=== PATIENT | female | born 1955 | race Caucasian/White ===

== ENCOUNTER 2016-09-03 20:11 | Emergency (ER) | payer MEDICAID, OTHER, SELFPAY ==
[2016-09-03 20:23] VITALS: BP 130/95
[2016-09-03] MEDS ORDERED: Albuterol/Ipratropium 3.0-0.5 MG/3 ML Neb Soln NEB ONE ×2 (20:50→22:12)
[2016-09-03] MEDS ORDERED: methylPREDNISolone Sodium Succinate 125 MG/2 ML SDV ONE (20:55)
[2016-09-03] MEDS ORDERED: Sodium Chloride 0.9% 1,000 ML IV SCH (21:00)
[2016-09-03] MEDS: methylPREDNISolone Sod Succ 125 MG in Dextrose 5% in Water 100 ML IV ONE ×4 (21:12→21:24)
[2016-09-03] MEDS ORDERED: Albuterol 0.083% 2.5 MG/3 ML Neb Soln NEB ONE (21:36)
--- NOTE | 2016-09-03 22:48 | EDM.PDOC ---
ED HPI GENERAL MEDICAL PROBLEM - General Chief Complaint: Respiratory Problem Stated Complaint: COUGH/TROUBLE BREATHING Time Seen by Provider: 09/03/16 20:18 Source of Information: Reports: Patient History Limitations: Reports: No limitations - History of Present Illness INITIAL COMMENTS - FREE TEXT/NARRATIVE: History of present illness: [61-year-old female presents with a cough for 3 days it is nonproductive and asthmatic in nature and a sore throat. She's not had any fever or or chills. She'll occasionally feel short of breath with this. Her recently had a similar illness that lasted 2 weeks.] Review of systems: As per history of present illness and below otherwise all systems reviewed and negative. Past medical history: As per history of present illness and as reviewed below otherwise noncontributory. Surgical history: As per history of present illness and as reviewed below otherwise noncontributory. Social history: No reported history of drug or alcohol abuse. Family history: As per history of present illness and as reviewed below otherwise noncontributory. Physical exam: HEENT: Atraumatic, normocephalic, pupils reactive, negative for conjunctival pallor or scleral icterus, mucous membranes moist, throat clear, neck supple, nontender, trachea midline. Lungs: She has diffuse rhonchi and wheezing throughout with fair to good air exchange Heart: S1S2, regular, negative for clicks, rubs, or JVD. Abdomen: Soft, nondistended, nontender. Negative for masses or hepatosplenomegaly. Negative for costovertebral tenderness. Pelvis: Stable nontender. Genitourinary: Deferred. Rectal: Deferred. Extremities: Atraumatic, negative for cords or calf pain. Neurovascular unremarkable. Neuro: Awake, alert, oriented. Cranial nerves II through XII unremarkable. Cerebellum unremarkable. Motor and sensory unremarkable throughout. Exam nonfocal. Diagnostics: [CBC complete metabolic panel chest x-ray rapid strep and influenza AMB were obtained. Strep was positive chest x-ray appeared clear] Therapeutics: [She received IV fluids while here and several med nebs. She is on inhalers at home. She also received Solu-Medrol 125 mg IV] Impression: [Strep pharyngitis Cough] Plan: [Of the treated with Augmentin 875 twice a day for 10 days. Followup with the clinic if not gradually improving] Definitive disposition and diagnosis as appropriate pending reevaluation and review of above. - Related Data Allergies Allergy/AdvReac Type Severity Reaction Status Date / Time fluoxetine [From Prozac] Allergy Cannot Verified 09/03/16 20:52 Remember hydrochlorothiazide Allergy Cannot Verified 09/03/16 20:52 [From Maxzide] Remember indapamide [From Lozol] Allergy Cannot Verified 09/03/16 20:52 Remember lisinopril [From Zestril] Allergy Cough Verified 09/03/16 20:52 nortriptyline Allergy Cannot Verified 09/03/16 20:52 Remember triamterene [From Maxzide] Allergy Cannot Verified 09/03/16 20:52 Remember Home Meds: Home Meds DULoxetine [Cymbalta] 90 mg PO DAILY 10/15/13 [History] Levothyroxine Sodium [Levothyroxine Sodium] 50 mcg PO DAILY 10/15/13 [History] Metoprolol Tartrate 50 mg PO BEDTIME 10/15/13 [History] atorvaSTATin Calcium [Atorvastatin Calcium] 40 mg PO BEDTIME 10/15/13 [History] traZODone HCl [Trazodone HCl] 150 mg PO BEDTIME 10/15/13 [History] Aspirin [Ecotrin] 81 mg PO DAILY 01/07/14 [History] Albuterol Sulfate [Proair Hfa] 2 inh PO Q4H PRN 05/03/14 [History] Gemfibrozil [Lopid] 600 mg PO BID 05/03/14 [History] Ipratropium/Albuterol Sulfate [Combivent Respimat Inhal [place]] 1 puff PO QID 10/10 [History] Losartan [Cozaar] 50 mg PO DAILY 05/03/14 [History] Multivitamin [Multi Vitamin Daily] 1 tab PO DAILY 05/03/14 [History] Calcitriol [Rocaltrol] 0.25 mcg PO DAILY 09/03/16 [History] amLODIPine [Norvasc] 5 mg PO DAILY 09/03/16 [History] hydrOXYzine Pamoate [Hydroxyzine Pamoate] 1 - 2 tab PO TID PRN 09/03/16 [History ] Past Medical History HEENT History: Reports: Impaired vision Cardiovascular History: Reports: High cholesterol, Hypertension Respiratory History: Reports: Asthma Gastrointestinal History: Reports: Cholelithiasis Genitourinary History: Reports: Chronic renal insuffiency [employer]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: Musculoskeletal History: Reports: Arthritis Psychiatric History: Reports: Anxiety, Depression Endocrine/Metabolic History: Reports: Hypothyroidism - Infectious Disease History Infectious Disease History: Reports: Chicken pox - Past Surgical History GI Surgical History: Reports: Cholecystectomy Female Surgical History: Reports: Hysterectomy, Salpingo-oophorectomy Social & Family History - Tobacco Use Smoking Status *Q: Current Status Unknown Second Hand Smoke Exposure: No - Caffeine Use Caffeine Use: Reports: Coffee - Alcohol Use Days Per Week of Alcohol Use: 0 - Recreational Drug Use Recreational Drug Use: No ED ROS GENERAL - Review of Systems Review Of Systems: ROS reveals no pertinent complaints other than HPI. ED EXAM, GENERAL - Physical Exam Exam: See Below Course - Vital Signs Last Recorded V/S: Last Vital Signs Temp 36.9 C 09/03/16 20:34 Pulse 96 09/03/16 20:34 Resp 18 09/03/16 20:34 BP 130/95 H 09/03/16 20:34 Pulse Ox 93 L 09/03/16 20:34 - Orders/Labs/Meds Orders: Active Orders 24 hr Category Date Time Status RT Aerosol Therapy [RC] ASDIRECTED Care 09/03/16 20:50 Active RT Aerosol Therapy [RC] ASDIRECTED Care 09/03/16 21:36 Active RT Aerosol Therapy [RC] ASDIRECTED Care 09/03/16 22:12 Active Chest 2V [CR] Stat Exams 09/03/16 20:46 Taken CULTURE RESPIRATORY + SMEAR [RM] Stat Lab 09/03/16 20:48 Uncollected Sodium Chloride 0.9% [Normal Saline] 1,000 ml Med 09/03/16 21:00 Active IV ASDIRECTED Medication Orders Sodium Chloride (Normal Saline) 1,000 mls @ 500 mls/hr IV ASDIRECTED HIGINIO Last Admin: 09/03/16 21:18 Dose: 500 mls/hr Labs: Laboratory Tests 09/03/16 09/03/16 09/03/16 Range/Units 20:57 20:57 20:58 WBC 5.4 (4.5-11.0) K/uL RBC 4.23 (3.30-5.50) M/uL Hgb 11.8 L (12.0-15.0) g/dL Hct 34.2 L (36.0-48.0) % MCV 81 (80-98) fL MCH 28 (27-31) pg MCHC 35 (32-36) % Plt Count 268 (150-400) K/uL Neut % (Auto) 44 (36-66) % Lymph % (Auto) 40 (24-44) % [place] % (Auto) 11 H (2-6) % Eos % (Auto) 4 (2-4) % Baso % (Auto) 1 (0-1) % Sodium 138 L (140-148) mmol/L Potassium 3.6 (3.6-5.2) mmol/L Chloride 102 (100-108) mmol/L Carbon Dioxide 21 (21-32) mmol/L Anion Gap 18.6 H (5.0-14.0) mmol/L BUN 38 H D (7-18) mg/dL Creatinine 2.4 H (0.6-1.0) mg/dL Est Cr Clr Drug Dosing 18.34 mL/min Estimated GFR (MDRD) 20 L (>60) Glucose 90 (74-106) mg/dL Calcium 8.5 (8.5-10.1) mg/dL Total Bilirubin 0.4 (0.2-1.0) mg/dL AST 44 H (15-37) U/L ALT 24 (12-78) U/L Alkaline Phosphatase 79 (46-116) U/L Total Protein 7.3 (6.4-8.2) g/dL Albumin 3.5 (3.4-5.0) g/dL Globulin 3.8 H (2.3-3.5) g/dL Albumin/Globulin Ratio 0.9 L (1.2-2.2) Urine Color Yellow Urine Appearance Clear Urine pH 6.0 (4.5-8.0) Ur Specific [place] 1.010 (1.008-1.030) Urine Protein 100 H (NEGATIVE) mg/dL Urine Glucose (UA) Normal (NEGATIVE) mg/dL Urine Ketones Negative (NEGATIVE) mg/dL Urine Occult Blood Negative (NEGATIVE) Urine Nitrite Negative (NEGATIVE) Urine Bilirubin Negative (NEGATIVE) Urine Urobilinogen Normal (NORMAL) mg/dL Ur Leukocyte Esterase Negative (NEGATIVE) Urine RBC 0-5 (0-5) Urine WBC 0-5 (0-5) Ur Epithelial Cells Rare Amorphous Sediment Not seen Urine Bacteria Not seen Urine Mucus Not seen Meds: Medications Generic Name Dose Route Start Last Admin Trade Name Freq PRN Reason Stop Dose Admin Sodium Chloride 1,000 mls @ 500 mls/hr 09/03/16 21:00 09/03/16 21:18 Normal Saline IV 500 mls/hr ASDIRECTED HIGINIO Administration Discontinued Medications Generic Name Dose Route Start Last Admin Trade Name Freq PRN Reason Stop Dose Admin Albuterol 2.5 mg 09/03/16 21:36 09/03/16 21:42 Proventil Neb Soln NEB 09/03/16 21:37 2.5 mg ONETIME ONE Administration Albuterol/Ipratropium 3 ml 09/03/16 20:50 09/03/16 21:11 Duoneb 3.0-0.5 Mg/3 Ml NEB 09/03/16 20:51 3 ml ONETIME ONE Administration Albuterol/Ipratropium 3 ml 09/03/16 22:12 09/03/16 22:16 Duoneb 3.0-0.5 Mg/3 Ml NEB 09/03/16 22:13 3 ml ONETIME ONE Administration Methylprednisolone Sodium 102 mls @ 200 mls/hr 09/03/16 20:52 09/03/16 21:24 Succinate 125 mg/ Dextrose/ IV 09/03/16 21:23 200 mls/hr Water ONETIME ONE Administration Methylprednisolone Sodium Succinate Confirm 09/03/16 20:55 09/03/16 21:24 Solu-Medrol Administered 09/03/16 20:56 Not Given Dose 125 mg .ROUTE .STK-MED ONE Departure - Departure Time of Disposition: 22:46 Disposition: Home, Self-Care 01 Condition: good Clinical Impression: Strep pharyngitis, Exacerbation of asthma - Discharge Information Forms: ED Department Discharge Additional Instructions: Please followup in the clinic if do not gradually improving over the next 3-4 days - My Orders Last 24 Hours: My Active Orders 09/03/16 20:46 Chest 2V [CR] Stat 09/03/16 20:48 CULTURE RESPIRATORY + SMEAR [RM] Stat 09/03/16 20:50 RT Aerosol Therapy [RC] ASDIRECTED 09/03/16 21:00 Sodium Chloride 0.9% [Normal Saline] 1,000 ml IV ASDIRECTED 09/03/16 21:36 RT Aerosol Therapy [RC] ASDIRECTED 09/03/16 22:12 RT Aerosol Therapy [RC] ASDIRECTED - Assessment/Plan Last 24 Hours: My Active Orders 09/03/16 20:46 Chest 2V [CR] Stat 09/03/16 20:48 CULTURE RESPIRATORY + SMEAR [RM] Stat 09/03/16 20:50 RT Aerosol Therapy [RC] ASDIRECTED 09/03/16 21:00 Sodium Chloride 0.9% [Normal Saline] 1,000 ml IV ASDIRECTED 09/03/16 21:36 RT Aerosol Therapy [RC] ASDIRECTED 09/03/16 22:12 RT Aerosol Therapy [RC] ASDIRECTED
--- NOTE | 2016-09-04 09:18 | CR ---
Two-view chest Comparison: December 2013. The heart and vascular structures are within normal limits. There are no infiltrates or effusions. T here is mild platelike atelectasis seen anteriorly on the lateral view. There is a stable calcified granuloma the right lower lobe. Impression: 1. No acute findings.
== END 2016-09-03 23:09 | disposition home or self-care (01) ==
LOC: JP.ED 20:11
DX: J45.901 Unspecified asthma with (acute) exacerbation (principal); J02.9 Acute pharyngitis, unspecified; I12.9 Hypertensive chronic kidney disease with stage 1 through stage 4 chronic kidney disease, or unspecified chronic kidney disease; N18.9 Chronic kidney disease, unspecified; F41.9 Anxiety disorder, unspecified; F32.9 Major depressive disorder, single episode, unspecified; E03.9 Hypothyroidism, unspecified; Z90.49 Acquired absence of other specified parts of digestive tract; Z90.710 Acquired absence of both cervix and uterus; Z90.721 Acquired absence of ovaries, unilateral; Z79.82 Long term (current) use of aspirin; Z79.899 Other long term (current) drug therapy; Z88.8 Allergy status to other drugs, medicaments and biological substances
CPT/HCPCS: 36415; 71020; 80053; 81001; 85025; 87430; 87804; 96361; 96365; 99285; J2930; J7040; J7620; J7060

== ENCOUNTER 2018-10-23 11:06 | Observation (INO) | payer MEDICAID ==
[2018-10-23] MEDS ORDERED: Sodium Chloride 0.9% 10 ML Syringe FLUSH PRN ×2 (11:44→15:15)
[2018-10-23] MEDS ORDERED: Sodium Chloride 0.9% 1,000 ML IV SCH (11:45)
[2018-10-23] MEDS ORDERED: Meclizine 25 MG Tab PO ONE (11:45)
[2018-10-23] MEDS ORDERED: Loratadine 10 MG Tab PO ONE (11:45)
--- NOTE | 2018-10-23 11:51 | EDM.PDOC ---
ED HPI GENERAL MEDICAL PROBLEM - General Chief Complaint: General Stated Complaint: DIZZY, DIARREA Time Seen by Provider: 10/23/18 11:40 Source of Information: Reports: Patient History Limitations: Reports: No Limitations - History of Present Illness INITIAL COMMENTS - FREE TEXT/NARRATIVE: Sabi is a 63 year old female, presents to the ED today with c/o of a 2 week history of a room spinning sensation, patient states she was seen at the clinic last week and started on medication for vertigo which patient reports has not helped. Patient also endorses non bloody diarrhea that stated shortly after her vertigo did. Patient denies any nausea, vomiting, fever, joint pain, rashes or headache. Patient denies any visual changes. She is able to ambulate slowly secondary to the room spinning. Patient reports that holding very still improves her symptoms. Onset: Sudden - Related Data Allergies Allergy/AdvReac Type Severity Reaction Status Date / Time fluoxetine [From Prozac] Allergy Cannot Verified 10/23/18 11:27 Remember hydrochlorothiazide Allergy Cannot Verified 10/23/18 11:27 [From Maxzide] Remember indapamide [From Lozol] Allergy Cannot Verified 10/23/18 11:27 Remember lisinopril [From Zestril] Allergy Cough Verified 10/23/18 11:27 nortriptyline Allergy Cannot Verified 10/23/18 11:27 Remember triamterene [From Maxzide] Allergy Cannot Verified 10/23/18 11:27 Remember Home Meds: Home Meds DULoxetine [Cymbalta] 90 mg PO DAILY 10/15/13 [History] Levothyroxine Sodium 50 mcg PO DAILY 10/15/13 [History] Metoprolol Tartrate 50 mg PO BEDTIME 10/15/13 [History] atorvaSTATin Calcium [Atorvastatin Calcium] 40 mg PO BEDTIME 10/15/13 [History] traZODone HCl [Trazodone HCl] 150 mg PO BEDTIME 10/15/13 [History] Aspirin [Ecotrin] 81 mg PO DAILY 01/07/14 [History] Albuterol Sulfate [Proair Hfa] 2 inh PO Q4H PRN 05/03/14 [History] Gemfibrozil [Lopid] 600 mg PO BID 05/03/14 [History] Ipratropium/Albuterol Sulfate [Combivent Respimat Inhal [place]] 1 puff PO QID 10/10 [History] Losartan [Cozaar] 50 mg PO DAILY 05/03/14 [History] Multivitamin [Multi Vitamin Daily] 1 tab PO DAILY 05/03/14 [History] Calcitriol [Rocaltrol] 0.25 mcg PO DAILY 09/03/16 [History] amLODIPine [Norvasc] 5 mg PO DAILY 09/03/16 [History] hydrOXYzine pamoate [Hydroxyzine Pamoate] 1 - 2 tab PO TID PRN 09/03/16 [History ] Past Medical History HEENT History: Reports: Impaired Vision Cardiovascular History: Reports: High Cholesterol, Hypertension Respiratory History: Reports: Asthma Gastrointestinal History: Reports: Cholelithiasis Genitourinary History: Reports: Chronic Renal Insuffiency 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: Musculoskeletal History: Reports: Arthritis Psychiatric History: Reports: Anxiety, Depression Endocrine/Metabolic History: Reports: Hypothyroidism - Infectious Disease History Infectious Disease History: Reports: Chicken Pox - Past Surgical History Head Surgeries/Procedures: Reports: None HEENT Surgical History: Reports: None Cardiovascular Surgical History: Reports: None Respiratory Surgical History: Reports: None GI Surgical History: Reports: Cholecystectomy Female Surgical History: Reports: Hysterectomy, Salpingo-Oophorectomy Endocrine Surgical History: Reports: None Musculoskeletal Surgical History: Reports: None Social & Family History - Tobacco Use Smoking Status *Q: Never Smoker Second Hand Smoke Exposure: No - Caffeine Use Caffeine Use: Reports: None - Recreational Drug Use Recreational Drug Use: No ED ROS GENERAL - Review of Systems Review Of Systems: ROS reveals no pertinent complaints other than HPI. ED EXAM, GENERAL - Physical Exam Exam: See Below Exam Limited By: No Limitations General Appearance: Alert, WD/WN, No Apparent Distress Eye Exam: Bilateral Eye: EOMI, Normal Inspection, PERRL Ears: Normal External Exam, Normal Canal, Hearing Grossly Normal, Normal TMs Ear Exam: Bilateral Ear: TM normal Nose: Normal Inspection, Normal Mucosa Throat/Mouth: Normal Inspection, Normal Oropharynx, No Airway Compromise Head: Atraumatic Neck: Normal Inspection, Supple, Non-Tender, Full Range of Motion Respiratory/Chest: No Respiratory Distress, Lungs Clear, Normal Breath Sounds Cardiovascular: Normal Peripheral Pulses, Regular Rate, Rhythm, No Murmur GI/Abdominal: Normal Bowel Sounds, Soft, Non-Tender Extremities: Normal Inspection, Normal Range of Motion Neurological: Alert, Oriented, CN II-XII Intact Psychiatric: Normal Affect Skin Exam: Warm, Dry, Intact. No: Rash Course - Vital Signs Last Recorded V/S: Last Vital Signs Temp 36.1 C 10/23/18 13:22 Pulse 77 10/23/18 13:22 Resp 16 10/23/18 13:22 BP 103/57 L 10/23/18 13:22 Pulse Ox 98 10/23/18 13:22 Sabi is a 63 year old female, hx of HTN, high cholesterol, and thyroid disease , presents to the ED today with a 2 week hx of progressive room spinning sensation. Please refer to HPI and focused exam. Patient on arrival here is hemodynamically stable, she is afebrile, exam is reassuring with no neuro/focal deficits, no nystagmus. I feel the risk of this being central vertigo is low, although, given duration of symptoms that did not improve with medication, I am going to obtain a CT scan of head today as well as check CBC, CMP, and TSH level today. PIV established and patient was given IV fluid here today with oral meclizine and Claritin. CT scan of head was unremarkable, blood work today reveals acute on chronic kidney injury with creatinine of 3.4 with GFR of 14 and BUN of 60. Patient has Gap of 20.5 with carbon dioxide of 17. CBC returns with white count of 5.9 with HGB of 11.4 with left shift and low neutrophil count. TSH is low, Free T3/ T4 is pending. Patient feeling modestly better here with fluids, plan to admit for acute on chronic kidney injury and hydration, hopefully her vertigo type symptoms will improve. Discussed patient with Dr. Escudero, hospitalist, he has accepted patient, patient remains in stable condition, agreeable to plan of care. - Orders/Labs/Meds Orders: Active Orders 24 hr Category Date Time Status Peripheral IV Care [RC] . DIRECTED Care 10/23/18 11:44 Active Sodium Chloride 0.9% [Normal Saline] 1,000 ml Med 10/23/18 11:45 Active IV ASDIRECTED Sodium Chloride 0.9% [Saline Flush] Med 10/23/18 11:44 Active 10 ml FLUSH ASDIRECTED PRN Peripheral IV Insertion Adult [OM.PC] Routine Oth 10/23/18 11:44 Ordered Medication Orders Sodium Chloride (Normal Saline) 1,000 mls @ 999 mls/hr IV ASDIRECTED HIGINIO Last Admin: 10/23/18 12:38 Dose: 999 mls/hr Sodium Chloride (Saline Flush) 10 ml FLUSH ASDIRECTED PRN PRN Reason: Keep Vein Open Last Admin: 10/23/18 12:38 Dose: 10 ml Labs: Laboratory Tests 10/23/18 10/23/18 10/23/18 Range/Units 11:45 11:52 11:52 WBC 5.9 (4.5-11.0) K/uL RBC 4.37 (3.30-5.50) M/uL Hgb 11.4 L (12.0-15.0) g/dL Hct 34.6 L (36.0-48.0) % MCV 79 L (80-98) fL MCH 26 L (27-31) pg MCHC 33 (32-36) % Plt Count 161 (150-400) K/uL Neut % (Auto) 67 H (36-66) % Lymph % (Auto) 20 L (24-44) % [place] % (Auto) 10 H (2-6) % Eos % (Auto) 2 (2-4) % Baso % (Auto) 2 H (0-1) % Sodium 133 L (140-148) mmol/L Potassium 4.5 (3.6-5.2) mmol/L Chloride 100 (100-108) mmol/L Carbon Dioxide 17 L (21-32) mmol/L Anion Gap 20.5 H (5.0-14.0) mmol/L BUN 60 H D (7-18) mg/dL Creatinine 3.4 H (0.6-1.0) mg/dL Est Cr Clr Drug Dosing 12.01 mL/min Estimated GFR (MDRD) 14 L (>60) Glucose 124 H (74-106) mg/dL Calcium 8.1 L (8.5-10.1) mg/dL Total Bilirubin 0.5 (0.2-1.0) mg/dL AST 42 H (15-37) U/L ALT 23 (12-78) U/L Alkaline Phosphatase 115 (46-116) U/L Total Protein 6.3 L (6.4-8.2) g/dL Albumin 2.8 L (3.4-5.0) g/dL Globulin 3.5 (2.3-3.5) g/dL Albumin/Globulin Ratio 0.8 L (1.2-2.2) Free T4 (0.76-1.46) ng/dL Free T3 (2.18-3.98) pg/dL TSH, Ultra Sensitive 0.008 L (0.358-3.740) uIU/mL 10/23/18 Range/Units 12:25 WBC (4.5-11.0) K/uL RBC (3.30-5.50) M/uL Hgb (12.0-15.0) g/dL Hct (36.0-48.0) % MCV (80-98) fL MCH (27-31) pg MCHC (32-36) % Plt Count (150-400) K/uL Neut % (Auto) (36-66) % Lymph % (Auto) (24-44) % [place] % (Auto) (2-6) % Eos % (Auto) (2-4) % Baso % (Auto) (0-1) % Sodium (140-148) mmol/L Potassium (3.6-5.2) mmol/L Chloride (100-108) mmol/L Carbon Dioxide (21-32) mmol/L Anion Gap (5.0-14.0) mmol/L BUN (7-18) mg/dL Creatinine (0.6-1.0) mg/dL Est Cr Clr Drug Dosing mL/min Estimated GFR (MDRD) (>60) Glucose (74-106) mg/dL Calcium (8.5-10.1) mg/dL Total Bilirubin (0.2-1.0) mg/dL AST (15-37) U/L ALT (12-78) U/L Alkaline Phosphatase (46-116) U/L Total Protein (6.4-8.2) g/dL Albumin (3.4-5.0) g/dL Globulin (2.3-3.5) g/dL Albumin/Globulin Ratio (1.2-2.2) Free T4 1.06 (0.76-1.46) ng/dL Free T3 0.75 L (2.18-3.98) pg/dL TSH, Ultra Sensitive (0.358-3.740) uIU/mL Meds: Medications Generic Name Dose Route Start Last Admin Trade Name Freq PRN Reason Stop Dose Admin Sodium Chloride 1,000 mls @ 999 mls/hr 10/23/18 11:45 10/23/18 12:38 Normal Saline IV 999 mls/hr ASDIRECTED HIGINIO Administration Sodium Chloride 10 ml 10/23/18 11:44 10/23/18 12:38 Saline Flush FLUSH 10 ml ASDIRECTED PRN Administration Keep Vein Open Discontinued Medications Generic Name Dose Route Start Last Admin Trade Name Freq PRN Reason Stop Dose Admin Loratadine 10 mg 10/23/18 11:45 10/23/18 12:39 Claritin PO 10/23/18 11:46 10 mg ONETIME ONE Administration Meclizine HCl 25 mg 10/23/18 11:45 10/23/18 12:39 Antivert PO 10/23/18 11:46 25 mg ONETIME ONE Administration Departure - Departure Time of Disposition: 14:00 Disposition: Admitted As Inpatient 65 Condition: Good Clinical Impression: Vertigo [id number] kidney injury Qualifiers: Acute renal failure type: unspecified Chronic kidney disease stage: stage 4 ( severe) Qualified Code(s): N17.9 - Acute kidney failure, unspecified; N18.4 - Chronic kidney disease, stage 4 (severe) - Discharge Information Referrals: Kelly Boone CNM [Primary Care Provider] - Forms: ED Department Discharge - My Orders Last 24 Hours: My Active Orders 10/23/18 11:44 Peripheral IV Care [RC] . DIRECTED Sodium Chloride 0.9% [Saline Flush] 10 ml FLUSH ASDIRECTED PRN Peripheral IV Insertion Adult [OM.PC] Routine 10/23/18 11:45 Sodium Chloride 0.9% [Normal Saline] 1,000 ml IV ASDIRECTED - Assessment/Plan Last 24 Hours: My Active Orders 10/23/18 11:44 Peripheral IV Care [RC] . DIRECTED Sodium Chloride 0.9% [Saline Flush] 10 ml FLUSH ASDIRECTED PRN Peripheral IV Insertion Adult [OM.PC] Routine 10/23/18 11:45 Sodium Chloride 0.9% [Normal Saline] 1,000 ml IV ASDIRECTED
--- NOTE | 2018-10-23 12:39 | CRLCT ---
INDICATION: Progressive vertigo TECHNIQUE: CT head without contrast. COMPARISON: None. FINDINGS: CSF spaces: Within normal limits for age. Brain parenchyma and extra-axial spaces: The tong-white differentiation is normal. No sign of mass, hemorrhage, or midline shift. No extra-axial fluid collection. Skull base and calvarium: The visualized paranasal sinuses and mastoid air cells demonstrate no acute or significant findings. The visualized orbits are grossly unremarkable. No skull fractures. IMPRESSION: Unremarkable noncontrast head CT. Please note that all CT scans at this facility use dose modulation, iterative reconstruction, and/or weight-based dosing when appropriate to reduce radiation dose to as low as reasonably achievable. Dictated by Noe Shahid MD @ Oct 23 2018 12:36PM Signed by Dr. Noe Shahid @ Oct 23 2018 12:38PM
--- NOTE | 2018-10-23 14:40 | PCM.HP ---
H&P History of Present Illness - General Date of Service: 10/23/18 Admit Problem/Dx: Admission Diagnosis/Problem Admission Diagnosis/Problem Vertigo Source of Information: Patient, Provider, RN Notes Reviewed History Limitations: Reports: No Limitations - History of Present Illness Initial Comments - Free Text/Narative: Ms. Hammond is a 63-year-old woman who is admitted to observation status, for further management of vertigo with associated nausea, dehydration, and acute on chronic kidney injury. She reports episodes of vertigo in the past, although never this severe. She has had symptoms of vertigo over the past week and a half , occurring intermittently, worse over the last 3 days. She has become progressively more weak and came into the emergency department for further evaluation. By history vertigo is positional, becoming significantly worse following head movement and then slowly receding to a more mild level. Laboratory studies show evidence of acute on chronic kidney injury. At baseline she has chronic kidney disease stage IV, most recent GFR was 22. GFR today is found to be further decreased at 14 and there is evidence of lactic acidosis on laboratory tests. - Related Data Allergies/Adverse Reactions: Allergies Allergy/AdvReac Type Severity Reaction Status Date / Time fluoxetine [From Prozac] Allergy Cannot Verified 10/23/18 11:27 Remember hydrochlorothiazide Allergy Cannot Verified 10/23/18 11:27 [From Maxzide] Remember indapamide [From Lozol] Allergy Cannot Verified 10/23/18 11:27 Remember lisinopril [From Zestril] Allergy Cough Verified 10/23/18 11:27 nortriptyline Allergy Cannot Verified 10/23/18 11:27 Remember triamterene [From Maxzide] Allergy Cannot Verified 10/23/18 11:27 Remember Home Medications: Home Meds DULoxetine [Cymbalta] 90 mg PO DAILY 10/15/13 [History] Levothyroxine Sodium 50 mcg PO DAILY 10/15/13 [History] Metoprolol Tartrate 50 mg PO BEDTIME 10/15/13 [History] atorvaSTATin Calcium [Atorvastatin Calcium] 40 mg PO BEDTIME 10/15/13 [History] traZODone HCl [Trazodone HCl] 150 mg PO BEDTIME 10/15/13 [History] Aspirin [Ecotrin] 81 mg PO DAILY 01/07/14 [History] Albuterol Sulfate [Proair Hfa] 2 inh PO Q4H PRN 05/03/14 [History] Gemfibrozil [Lopid] 600 mg PO BID 05/03/14 [History] Ipratropium/Albuterol Sulfate [Combivent Respimat Inhal [place]] 1 puff PO QID 10/10 [History] Losartan [Cozaar] 50 mg PO DAILY 05/03/14 [History] Multivitamin [Multi Vitamin Daily] 1 tab PO DAILY 05/03/14 [History] Calcitriol [Rocaltrol] 0.25 mcg PO DAILY 09/03/16 [History] amLODIPine [Norvasc] 5 mg PO DAILY 09/03/16 [History] hydrOXYzine pamoate [Hydroxyzine Pamoate] 1 - 2 tab PO TID PRN 09/03/16 [History ] Past Medical History HEENT History: Reports: Impaired Vision Cardiovascular History: Reports: High Cholesterol, Hypertension Respiratory History: Reports: Asthma Gastrointestinal History: Reports: Cholelithiasis Genitourinary History: Reports: Chronic Renal Insuffiency 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: Musculoskeletal History: Reports: Arthritis Psychiatric History: Reports: Anxiety, Depression Endocrine/Metabolic History: Reports: Hypothyroidism - Infectious Disease History Infectious Disease History: Reports: Chicken Pox - Past Surgical History Head Surgeries/Procedures: Reports: None HEENT Surgical History: Reports: None Cardiovascular Surgical History: Reports: None Respiratory Surgical History: Reports: None GI Surgical History: Reports: Cholecystectomy Female Surgical History: Reports: Hysterectomy, Salpingo-Oophorectomy Endocrine Surgical History: Reports: None Musculoskeletal Surgical History: Reports: None Social & Family History - Tobacco Use Smoking Status *Q: Never Smoker Second Hand Smoke Exposure: No - Caffeine Use Caffeine Use: Reports: None - Recreational Drug Use Recreational Drug Use: No H&P Review of Systems - Review of Systems: Review Of Systems: See Below General: Reports: Malaise, Weakness, Diaphoresis, Decreased Appetite. Denies: Fever, Chills HEENT: Reports: Vertigo. Denies: Ear Pain, Eye Pain, Headaches, Hearing Changes , Rhinitis, Post Nasal Drip, Sore Throat Pulmonary: Reports: No Symptoms Cardiovascular: Reports: No Symptoms Gastrointestinal: Reports: Decreased Appetite, Nausea. Denies: Abdominal Pain, Black Stool, Bloody Stool, Constipation, Diarrhea, Difficulty Swallowing, Distension, Vomiting Genitourinary: Reports: No Symptoms Musculoskeletal: Reports: No Symptoms Skin: Reports: No Symptoms Psychiatric: Reports: No Symptoms Neurological: Reports: No Symptoms Hematologic/Lymphatic: Reports: No Symptoms Immunologic: Reports: No Symptoms Exam - Exam Exam: See Below - Vital Signs Vital Signs: Last Vital Signs Temp 97 F 10/23/18 13:22 Pulse 77 10/23/18 13:22 Resp 16 10/23/18 13:22 BP 103/57 L 10/23/18 13:22 Pulse Ox 98 10/23/18 13:22 Weight: 127 lb - Exam General: Alert, Oriented, Cooperative, Moderate Distress HEENT: Conjunctiva Clear, Hearing Intact, Normal Nasal Septum, Posterior Pharynx Clear, Pupils Equal, TMs Clear, Other (No nystagmus noted on exam). No : Mucosa Moist & [place] Neck: Supple, Trachea Midline, +2 Carotid Pulse wo Bruit Lungs: Clear to Auscultation, Normal Respiratory Effort Cardiovascular: Regular Rate, Regular Rhythm, Normal S1, Normal S2. No: Systolic Murmur, Diastolic Murmur GI/Abdominal Exam: Soft, Non-Tender, No Organomegaly, No Distention Back Exam: Normal Inspection, Full Range of Motion Extremities: Non-Tender, No Pedal Edema Skin: Warm, Dry, Intact Neurological: Cranial Nerves Intact, Strength Equal Bilateral, Normal Speech, Normal Tone, Sensation Intact. No: Focal Deficit Neuro Extensive - Mental Status: Alert, Oriented x3, Normal Mood/Affect, Normal Cognition, Memory Intact - Patient Data Lab Results Last 24 hrs: Laboratory Results - last 24 hr 10/23/18 10/23/18 10/23/18 Range/Units 11:45 11:52 11:52 WBC 5.9 (4.5-11.0) K/uL RBC 4.37 (3.30-5.50) M/uL Hgb 11.4 L (12.0-15.0) g/dL Hct 34.6 L (36.0-48.0) % MCV 79 L (80-98) fL MCH 26 L (27-31) pg MCHC 33 (32-36) % Plt Count 161 (150-400) K/uL Neut % (Auto) 67 H (36-66) % Lymph % (Auto) 20 L (24-44) % Edwards % (Auto) 10 H (2-6) % Eos % (Auto) 2 (2-4) % Baso % (Auto) 2 H (0-1) % Sodium 133 L (140-148) mmol/L Potassium 4.5 (3.6-5.2) mmol/L Chloride 100 (100-108) mmol/L Carbon Dioxide 17 L (21-32) mmol/L Anion Gap 20.5 H (5.0-14.0) mmol/L BUN 60 H D (7-18) mg/dL Creatinine 3.4 H (0.6-1.0) mg/dL Est Cr Clr Drug Dosing 12.01 mL/min Estimated GFR (MDRD) 14 L (>60) Glucose 124 H (74-106) mg/dL Calcium 8.1 L (8.5-10.1) mg/dL Total Bilirubin 0.5 (0.2-1.0) mg/dL AST 42 H (15-37) U/L ALT 23 (12-78) U/L Alkaline Phosphatase 115 (46-116) U/L Total Protein 6.3 L (6.4-8.2) g/dL Albumin 2.8 L (3.4-5.0) g/dL Globulin 3.5 (2.3-3.5) g/dL Albumin/Globulin Ratio 0.8 L (1.2-2.2) Free T4 (0.76-1.46) ng/dL Free T3 (2.18-3.98) pg/dL TSH, Ultra Sensitive 0.008 L (0.358-3.740) uIU/mL 10/23/18 Range/Units 12:25 WBC (4.5-11.0) K/uL RBC (3.30-5.50) M/uL Hgb (12.0-15.0) g/dL Hct (36.0-48.0) % MCV (80-98) fL MCH (27-31) pg MCHC (32-36) % Plt Count (150-400) K/uL Neut % (Auto) (36-66) % Lymph % (Auto) (24-44) % Edwards % (Auto) (2-6) % Eos % (Auto) (2-4) % Baso % (Auto) (0-1) % Sodium (140-148) mmol/L Potassium (3.6-5.2) mmol/L Chloride (100-108) mmol/L Carbon Dioxide (21-32) mmol/L Anion Gap (5.0-14.0) mmol/L BUN (7-18) mg/dL Creatinine (0.6-1.0) mg/dL Est Cr Clr Drug Dosing mL/min Estimated GFR (MDRD) (>60) Glucose (74-106) mg/dL Calcium (8.5-10.1) mg/dL Total Bilirubin (0.2-1.0) mg/dL AST (15-37) U/L ALT (12-78) U/L Alkaline Phosphatase (46-116) U/L Total Protein (6.4-8.2) g/dL Albumin (3.4-5.0) g/dL Globulin (2.3-3.5) g/dL Albumin/Globulin Ratio (1.2-2.2) Free T4 1.06 (0.76-1.46) ng/dL Free T3 0.75 L (2.18-3.98) pg/dL TSH, Ultra Sensitive (0.358-3.740) uIU/mL Result Diagrams: 10/23/18 11:52 10/23/18 11:45 *Q Meaningful Use (ADM) - VTE Risk Assess *Q Each Risk Factor Represents 1 Point: Abnormal Pulmonary Function (COPD) Total Score 1 Point Risk Factors: 1 Each Risk Factor Represents 2 Points: Age 60 - 74 Years Total Score 2 Point Risk Factors: 2 Each Risk Factor Represents 3 Points: None Total Score 3 Point Risk Factors: 0 Each Risk Factor Represents 5 Points: None Total Score 5 Point Risk Factors: 0 Venous Thromboembolism Risk Factor Score *Q: 3 Problem List Initiated/Reviewed/Updated: Yes Orders Last 24hrs: Active Orders 24 hr Category Date Time Status Patient Status Manage Transfer [TRANSFER] Routine ADT 10/23/18 14:33 Ordered Peripheral IV Care [RC] . DIRECTED Care 10/23/18 11:44 Active Sodium Chloride 0.9% [Normal Saline] 1,000 ml Med 10/23/18 11:45 Active IV ASDIRECTED Sodium Chloride 0.9% [Saline Flush] Med 10/23/18 11:44 Active 10 ml FLUSH ASDIRECTED PRN Peripheral IV Insertion Adult [OM.PC] Routine Oth 10/23/18 11:44 Ordered Resuscitation Status Routine Resus Stat 10/23/18 14:35 Ordered Medication Orders Sodium Chloride (Normal Saline) 1,000 mls @ 999 mls/hr IV ASDIRECTED [facility] Last Admin: 10/23/18 12:38 Dose: 999 mls/hr Sodium Chloride (Saline Flush) 10 ml FLUSH ASDIRECTED PRN PRN Reason: Keep Vein Open Last Admin: 10/23/18 12:38 Dose: 10 ml Assessment/Plan Comment:: ASSESSMENT AND PLAN BENIGN POSITIONAL VERTIGO-persistent symptoms over the past week and a half, worse over the last 3 days. She is too uncomfortable at this time to proceed with Hallpike maneuvers. Persistent symptoms have resulted in dehydration and acute on chronic kidney injury. -IV fluids for hydration -Lorazepam 0.5 mg IV every 4 hours for vertigo and nausea -Physical therapy consult in a.m. ACUTE KIDNEY INJURY-likely secondary to intravascular volume depletion secondary to dehydration. -IV fluids as above -Reassess renal function in a.m. CHRONIC KIDNEY DISEASE STAGE IV-she is unaware of the underlying etiology of her kidney disease. DEHYDRATION -IV fluids as above METABOLIC ACIDOSIS-likely secondary to dehydration and underlying kidney disease -IV fluids as above -Reassess labs in a.m. MAINTENANCE ISSUES -DVT prophylaxis; Lovenox 30 mg subcutaneous daily -GI prophylaxis; not indicated -[place] catheter; not indicated -Nutrition; 2 g sodium diet -Nicotine dependence; not required CODE STATUS-FULL CODE ADMISSION STATUS-this patient will be admitted to observation status, expect no more than a one night hospital stay for evaluation and management of problems as outlined above. DISPOSITION-anticipate discharge to home after the hospital stay. PRIMARY CARE PROVIDER-Kelly Boone
[2018-10-23] MEDS ORDERED: Polyethylene Glycol 3350 Powder 17 GM Packet PO PRN (15:15)
[2018-10-23] MEDS ORDERED: Acetaminophen 325 MG Tab PO PRN (15:15)
[2018-10-23] MEDS ORDERED: Albuterol 8 GM Inhaler (PTOM) INH PRN (15:15)
[2018-10-23] MEDS ORDERED: LORazepam 2 MG/ML SDV IV PRN (15:15)
[2018-10-23] MEDS ORDERED: Enoxaparin 30 MG/0.3 ML Syringe SUBCUT SCH (17:00)
[2018-10-23] MEDS ORDERED: Metoprolol Tartrate 50 MG Tab PO SCH (21:00)
[2018-10-23] MEDS ORDERED: TRAZODONE HCL 150 MG PO SCH (21:00)
[2018-10-23] MEDS ORDERED: atorvaSTATin 20 MG Tab PO SCH (21:00)
[2018-10-23] MEDS ORDERED: Non-Formulary Medication 1 Each (Atorvastatin Calcium [Atorvastatin Calcium] 40 MG) PO SCH (21:00)
[2018-10-23] MEDS: Gemfibrozil 600 MG Tab PO SCH (21:38)
[2018-10-23] MEDS: Sodium Chloride 0.9% 1,000 ML IV SCH (21:45)
[2018-10-24] MEDS: Loperamide 2 MG Cap PO PRN ×2 (04:03→10:47)
[2018-10-24] MEDS: Sodium Chloride 0.9% 1,000 ML IV SCH (05:37)
[2018-10-24] MEDS ORDERED: Levothyroxine 50 MCG Tab PO SCH (07:30)
[2018-10-24] MEDS ORDERED: Potassium Chloride 20 MEQ Tab.ER PO ONE (08:30)
[2018-10-24] MEDS ORDERED: CALCITRIOL 0.25 MCG PO SCH (09:00)
[2018-10-24] MEDS ORDERED: Levothyroxine 25 MCG Tab PO SCH (09:00)
[2018-10-24] MEDS ORDERED: Aspirin 81 MG Tab.EC PO SCH (09:00)
[2018-10-24] MEDS ORDERED: Non-Formulary Medication 1 Each (Multivitamin [Multi-Vitamin Daily] 1 TAB) PO SCH (09:00)
[2018-10-24] MEDS ORDERED: Calcium Gluconate 2 GM in Sodium Chloride 0.9% 100 ML IV ONE (09:00)
[2018-10-24] MEDS ORDERED: DULoxetine 30 MG Cap PO SCH (09:00)
[2018-10-24] MEDS ORDERED: amLODIPine 5 MG Tab PO SCH (09:00)
[2018-10-24] MEDS ORDERED: Multivitamins with Iron/Calcium/Folic Acid/Minerals Tab PO SCH (09:00)
[2018-10-24] MEDS: Gemfibrozil 600 MG Tab PO SCH (09:22)
[2018-10-24 09:27] VITALS: BP 96/67
[2018-10-24] MEDS ORDERED: Albuterol/Ipratropium 3.0-0.5 MG/3 ML Neb Soln INH SCH (10:00)
--- NOTE | 2018-10-24 10:53 | PCM.DCSUM1 ---
Discharge Summary - Hospital Course Brief History: Ms. Hammond is a 63-year-old woman who was admitted through the emergency department with dehydration, acute kidney injury, nausea, secondary to benign positional vertigo. - Discharge Data Discharge Date: 10/24/18 Discharge Disposition: Home, Self-Care 01 Condition: Fair - Discharge Diagnosis/Problem(s) (1) [id number] kidney injury SNOMED Code(s): 136993394 ICD Code: N17.9 - ACUTE KIDNEY FAILURE, UNSPECIFIED; N18.9 - CHRONIC KIDNEY DISEASE, UNSPECIFIED Status: Acute Current Visit: Yes Qualifiers: Acute renal failure type: unspecified Chronic kidney disease stage: stage 4 (severe) Qualified Code(s): N17.9 - Acute kidney failure, unspecified; N18.4 - Chronic kidney disease, stage 4 (severe) (2) Dehydration SNOMED Code(s): 15078839 ICD Code: E86.0 - DEHYDRATION Status: Acute Current Visit: Yes (3) Nausea SNOMED Code(s): 782596893 ICD Code: R11.0 - NAUSEA Status: Acute Current Visit: Yes (4) Benign positional vertigo SNOMED Code(s): 386943345 ICD Code: H81.10 - BENIGN PAROXYSMAL VERTIGO, UNSPECIFIED EAR Status: Acute Current Visit: Yes (5) Metabolic acidosis SNOMED Code(s): 67727044 ICD Code: E87.2 - ACIDOSIS Status: Acute Current Visit: Yes - Patient Summary/Data Consults: Consultations 10/23/18 15:15 PT Evaluation and Treatment [CONS] Routine Please Evaluate and Treat. PT Reason for Consult: Vertigo This query below is only for informational purposes and is not editable. Hospital Course: Ms. Hammond is a 63-year-old woman who is admitted to [facility] status, for further management of vertigo with associated nausea, dehydration, and acute on chronic kidney injury. She reports episodes of vertigo in the past, although never this severe. She has had symptoms of vertigo over the past week and a half , occurring intermittently, worse over the last 3 days. She has become progressively more weak and came into the emergency department for further evaluation. By history vertigo is positional, becoming significantly worse following head movement and then slowly receding to a more mild level. Laboratory studies show evidence of acute on chronic kidney injury. At baseline she has chronic kidney disease stage IV, most recent GFR was 22. GFR today is found to be further decreased at 14 and there is evidence of lactic acidosis on laboratory tests. On admission she was given IV fluids for hydration and management of her dehydration as well as metabolic acidosis. The following morning renal function had returned to baseline with almost total resolution of metabolic acidosis. Probably some residual of this is secondary to her chronic kidney disease. Nausea had resolved and she was eating without significant difficulty by the time of discharge. Benign positional vertigo was significantly improved but not totally resolved. Activity will be as tolerated and she will resume her usual diet. Follow-up appointment will be scheduled with her primary care provider within one week. - Patient Instructions Diet: Usual Diet as Tolerated Activity: As Tolerated Other/Special Instructions: Please schedule follow-up appointment with primary care provider within one week. - Discharge Plan *PRESCRIPTION DRUG MONITORING PROGRAM REVIEWED*: Not Applicable *COPY OF PRESCRIPTION DRUG MONITORING REPORT IN PATIENT SAMUEL: Not Applicable Home Medications: Home Meds DULoxetine [Cymbalta] 90 mg PO DAILY 10/15/13 [History] Levothyroxine Sodium 50 mcg PO DAILY 10/15/13 [History] Metoprolol Tartrate 50 mg PO BEDTIME 10/15/13 [History] atorvaSTATin Calcium [Atorvastatin Calcium] 40 mg PO BEDTIME 10/15/13 [History] traZODone HCl [Trazodone HCl] 150 mg PO BEDTIME 10/15/13 [History] Aspirin [Ecotrin EC] 81 mg PO DAILY 01/07/14 [History] Albuterol Sulfate [Proair Hfa] 2 inh PO Q4H PRN 05/03/14 [History] Gemfibrozil [Lopid] 600 mg PO BID 05/03/14 [History] Ipratropium/Albuterol Sulfate [Combivent Respimat 20-100 Mcg] 1 puff PO QID 10/10 [History] Losartan [Cozaar] 50 mg PO DAILY 05/03/14 [History] Multivitamin [Multi-Vitamin Daily] 1 tab PO DAILY 05/03/14 [History] Calcitriol [Rocaltrol] 0.25 mcg PO DAILY 09/03/16 [History] amLODIPine [Norvasc] 5 mg PO DAILY 09/03/16 [History] hydrOXYzine pamoate [Hydroxyzine Pamoate] 1 - 2 tab PO TID PRN 09/03/16 [History ] Referrals: Kelly Boone CNM [Primary Care Provider] - - Discharge Summary/Plan Comment DC Time >30 min.: No - Patient Data Vitals - Most Recent: Last Vital Signs Temp 99.2 F 10/24/18 07:20 Pulse 72 10/24/18 10:05 Resp 14 10/24/18 07:20 BP 96/67 10/24/18 09:22 Pulse Ox 94 L 10/24/18 07:20 Weight - Most Recent: 128 lb I&O - Last 24 hours: Intake & Output 10/23/18 10/24/18 10/24/18 22:59 06:59 14:59 Intake Total 710 1353 780 Output Total 600 950 450 Balance 110 403 330 Lab Results - Last 24 hrs: Laboratory Results - last 24 hr 10/23/18 10/23/18 10/23/18 Range/Units 11:45 11:52 11:52 WBC 5.9 (4.5-11.0) K/uL RBC 4.37 (3.30-5.50) M/uL Hgb 11.4 L (12.0-15.0) g/dL Hct 34.6 L (36.0-48.0) % MCV 79 L (80-98) fL MCH 26 L (27-31) pg MCHC 33 (32-36) % Plt Count 161 (150-400) K/uL Neut % (Auto) 67 H (36-66) % Lymph % (Auto) 20 L (24-44) % [place] % (Auto) 10 H (2-6) % Eos % (Auto) 2 (2-4) % Baso % (Auto) 2 H (0-1) % Sodium 133 L (140-148) mmol/L Potassium 4.5 (3.6-5.2) mmol/L Chloride 100 (100-108) mmol/L Carbon Dioxide 17 L (21-32) mmol/L Anion Gap 20.5 H (5.0-14.0) mmol/L BUN 60 H D (7-18) mg/dL Creatinine 3.4 H (0.6-1.0) mg/dL Est Cr Clr Drug Dosing 12.01 mL/min Estimated GFR (MDRD) 14 L (>60) Glucose 124 H (74-106) mg/dL Calcium 8.1 L (8.5-10.1) mg/dL POC WB Ioniz Calcium (1.12-1.32) mmol/L Total Bilirubin 0.5 (0.2-1.0) mg/dL AST 42 H (15-37) U/L ALT 23 (12-78) U/L Alkaline Phosphatase 115 (46-116) U/L Total Protein 6.3 L (6.4-8.2) g/dL Albumin 2.8 L (3.4-5.0) g/dL Globulin 3.5 (2.3-3.5) g/dL Albumin/Globulin Ratio 0.8 L (1.2-2.2) Free T4 (0.76-1.46) ng/dL Free T3 (2.18-3.98) pg/dL TSH, Ultra Sensitive 0.008 L (0.358-3.740) uIU/mL 10/23/18 10/24/18 10/24/18 Range/Units 12:25 05:11 08:00 WBC (4.5-11.0) K/uL RBC (3.30-5.50) M/uL Hgb (12.0-15.0) g/dL Hct (36.0-48.0) % MCV (80-98) fL MCH (27-31) pg MCHC (32-36) % Plt Count (150-400) K/uL Neut % (Auto) (36-66) % Lymph % (Auto) (24-44) % Keith % (Auto) (2-6) % Eos % (Auto) (2-4) % Baso % (Auto) (0-1) % Sodium 137 L (140-148) mmol/L Potassium 3.7 (3.6-5.2) mmol/L Chloride 107 (100-108) mmol/L Carbon Dioxide 18 L (21-32) mmol/L Anion Gap 15.7 H (5.0-14.0) mmol/L BUN 39 H (7-18) mg/dL Creatinine 2.4 H (0.6-1.0) mg/dL Est Cr Clr Drug Dosing 17.44 mL/min Estimated GFR (MDRD) 20 L (>60) Glucose 99 (74-106) mg/dL Calcium 6.9 L* (8.5-10.1) mg/dL POC WB Ioniz Calcium 1.03 L (1.12-1.32) mmol/L Total Bilirubin (0.2-1.0) mg/dL AST (15-37) U/L ALT (12-78) U/L Alkaline Phosphatase (46-116) U/L Total Protein (6.4-8.2) g/dL Albumin (3.4-5.0) g/dL Globulin (2.3-3.5) g/dL Albumin/Globulin Ratio (1.2-2.2) Free T4 1.06 (0.76-1.46) ng/dL Free T3 0.75 L (2.18-3.98) pg/dL TSH, Ultra Sensitive (0.358-3.740) uIU/mL Med Orders - Current: Current Medications Acetaminophen (Tylenol) 650 mg PO Q4H PRN PRN Reason: Pain (Mild 1-3)/fever Albuterol (Ventolin Hfa) 0 gm INH Q4H PRN PRN Reason: Shortness of Breath Albuterol/Ipratropium (Duoneb 3.0-0.5 Mg/3 Ml) 3 ml INH Q6H [facility] Last Admin: 10/24/18 10:04 Dose: 3 ml Amlodipine Besylate (Norvasc) 5 mg PO DAILY [facility] Last Admin: 10/24/18 09:22 Dose: 5 mg Aspirin (Halfprin) 81 mg PO DAILY [facility] Last Admin: 10/24/18 09:22 Dose: 81 mg Atorvastatin Calcium (Lipitor) 40 mg PO BEDTIME [facility] Last Admin: 10/23/18 21:38 Dose: 40 mg Duloxetine HCl (Cymbalta) 90 mg PO DAILY [facility] Last Admin: 10/24/18 09:21 Dose: 90 mg Enoxaparin Sodium (Lovenox) 30 mg SUBCUT Q24H [facility] Last Admin: 10/23/18 18:14 Dose: 30 mg Gemfibrozil (Lopid) 600 mg PO BID [facility] Last Admin: 10/24/18 09:22 Dose: 600 mg Sodium Chloride (Normal Saline) 1,000 mls @ 125 mls/hr IV ASDIRECTED [facility] Last Admin: 10/24/18 05:37 Dose: 125 mls/hr Levothyroxine Sodium (Synthroid) 50 mcg PO ACBREAKFAST [facility] Last Admin: 10/24/18 07:28 Dose: 50 mcg Loperamide HCl (Imodium) 2 mg PO Q4H PRN PRN Reason: Diarrhea Last Admin: 10/24/18 10:47 Dose: 2 mg Lorazepam (Ativan) 0.5 mg IV Q4H PRN PRN Reason: Nausea/Vomiting Metoprolol Tartrate (Lopressor) 50 mg PO BEDTIME [facility] Last Admin: 10/23/18 21:38 Dose: 50 mg Multivitamins/Minerals (Thera M Plus) 1 tab PO DAILY [facility] Last Admin: 10/24/18 09:22 Dose: 1 tab Non-Formulary Medication (Calcitriol [Rocaltrol]) 0.25 mcg PO DAILY [facility] Polyethylene Glycol (Miralax) 17 gm PO DAILY PRN PRN Reason: Constipation Sodium Chloride (Saline Flush) 10 ml FLUSH ASDIRECTED PRN PRN Reason: Keep Vein Open Trazodone HCl (Trazodone) 150 mg PO BEDTIME [facility] Discontinued Medications Sodium Chloride (Normal Saline) 1,000 mls @ 999 mls/hr IV ASDIRECTED [facility] Last Admin: 10/23/18 12:38 Dose: 999 mls/hr Calcium Gluconate 2 gm/ Sodium (Chloride) 120 mls @ 100 mls/hr IV ONETIME ONE Stop: 10/24/18 10:11 Last Admin: 10/24/18 09:21 Dose: 100 mls/hr Loratadine (Claritin) 10 mg PO ONETIME ONE Stop: 10/23/18 11:46 Last Admin: 10/23/18 12:39 Dose: 10 mg Meclizine HCl (Antivert) 25 mg PO ONETIME ONE Stop: 10/23/18 11:46 Last Admin: 10/23/18 12:39 Dose: 25 mg Potassium Chloride (Klor-Con M20) 40 meq PO ONETIME ONE Stop: 10/24/18 08:31 Last Admin: 10/24/18 09:21 Dose: 40 meq Sodium Chloride (Saline Flush) 10 ml FLUSH ASDIRECTED PRN PRN Reason: Keep Vein Open Last Admin: 10/23/18 12:38 Dose: 10 ml - Exam Quality Assessment: Reports: DVT Prophylaxis General: Reports: Alert, Oriented, Cooperative, No Acute Distress Lungs: Reports: Clear to Auscultation, Normal Respiratory Effort Cardiovascular: Reports: Regular Rate, Regular Rhythm, No Murmurs GI/Abdominal Exam: Soft, Non-Tender, No Organomegaly, No Distention
[2018-10-24] MEDS ORDERED: traZODone 50 MG Tab PO SCH (21:00)
== END 2018-10-24 12:20 | disposition home or self-care (01) ==
LOC: JP.ED 11:06 → JP.MS 14:33
PROVIDERS: ADMIT Hospitalist; ATTEND Hospitalist
DX: H81.10 Benign paroxysmal vertigo, unspecified ear (principal); E86.0 Dehydration; E87.2 Acidosis; N17.9 Acute kidney failure, unspecified; I12.9 Hypertensive chronic kidney disease with stage 1 through stage 4 chronic kidney disease, or unspecified chronic kidney disease; N18.4 Chronic kidney disease, stage 4 (severe); E03.9 Hypothyroidism, unspecified; E78.00 Pure hypercholesterolemia, unspecified; F32.9 Major depressive disorder, single episode, unspecified; F41.9 Anxiety disorder, unspecified; Z88.8 Allergy status to other drugs, medicaments and biological substances; Z79.82 Long term (current) use of aspirin; Z79.899 Other long term (current) drug therapy
CPT/HCPCS: 36415; 70450; 80048; 80053; 82330; 84439; 84443; 84481; 85025; 94640; 96360; 99285; A9270; J0610; J1650; J7030; 96361; 96365; 96372; G0378; J7620-GY

== ENCOUNTER 2018-12-22 00:01 | Emergency (ER) | payer MEDICAID, OTHER ==
[2018-12-22 00:15] VITALS: BP 142/75
[2018-12-22] MEDS ORDERED: Acetaminophen/HYDROcodone 325-5 MG Tab PO ONE (00:35)
--- NOTE | 2018-12-22 00:38 | EDM.PDOC ---
ED HPI GENERAL MEDICAL PROBLEM - General Chief Complaint: Lower Extremity Injury/Pain Stated Complaint: FALL INJURING ANKLE Time Seen by Provider: 12/22/18 00:32 Source of Information: Reports: Patient History Limitations: Reports: No Limitations - History of Present Illness INITIAL COMMENTS - FREE TEXT/NARRATIVE: pt tripped and turned her ankle inward. She was very uncomfortable after this happened and she was not able to bear wt on it. 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 - Related Data Allergies Allergy/AdvReac Type Severity Reaction Status Date / Time fluoxetine [From Prozac] Allergy Cannot Verified 12/22/18 00:34 Remember hydrochlorothiazide Allergy Cannot Verified 12/22/18 00:34 [From Maxzide] Remember indapamide [From Lozol] Allergy Cannot Verified 12/22/18 00:34 Remember nortriptyline Allergy Cannot Verified 12/22/18 00:34 Remember triamterene [From Maxzide] Allergy Cannot Verified 12/22/18 00:34 Remember lisinopril [From Zestril] AdvReac Cough Verified 12/22/18 00:34 Home Meds: Home Meds DULoxetine [Cymbalta] 90 mg PO DAILY 10/15/13 [History] Levothyroxine Sodium 50 mcg PO DAILY 10/15/13 [History] Metoprolol Tartrate 50 mg PO BEDTIME 10/15/13 [History] atorvaSTATin Calcium [Atorvastatin Calcium] 40 mg PO BEDTIME 10/15/13 [History] traZODone HCl [Trazodone HCl] 150 mg PO BEDTIME 10/15/13 [History] Aspirin [Ecotrin EC] 81 mg PO DAILY 01/07/14 [History] Albuterol Sulfate [Proair Hfa] 2 inh PO Q4H PRN 05/03/14 [History] Gemfibrozil [Lopid] 600 mg PO BID 05/03/14 [History] Ipratropium/Albuterol Sulfate [Combivent Respimat 20-100 Mcg] 1 puff PO QID 10/10 [History] Losartan [Cozaar] 50 mg PO DAILY 05/03/14 [History] Multivitamin [Multi-Vitamin Daily] 1 tab PO DAILY 05/03/14 [History] Calcitriol [Rocaltrol] 0.25 mcg PO DAILY 09/03/16 [History] amLODIPine [Norvasc] 5 mg PO DAILY 09/03/16 [History] hydrOXYzine pamoate [Hydroxyzine Pamoate] 1 - 2 tab PO TID PRN 09/03/16 [History ] Past Medical History HEENT History: Reports: Impaired Vision Cardiovascular History: Reports: High Cholesterol, Hypertension Respiratory History: Reports: Asthma Gastrointestinal History: Reports: Cholelithiasis Genitourinary History: Reports: Chronic Renal Insuffiency 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: Musculoskeletal History: Reports: Arthritis Psychiatric History: Reports: Anxiety, Depression Endocrine/Metabolic History: Reports: Hypothyroidism Dermatologic History: Reports: Psoriasis - Infectious Disease History Infectious Disease History: Reports: Chicken Pox - Past Surgical History Head Surgeries/Procedures: Reports: None HEENT Surgical History: Reports: None Cardiovascular Surgical History: Reports: None Respiratory Surgical History: Reports: None GI Surgical History: Reports: Cholecystectomy Female Surgical History: Reports: Hysterectomy, Salpingo-Oophorectomy Endocrine Surgical History: Reports: None Musculoskeletal Surgical History: Reports: None Social & Family History - Family History Cardiac: Reports: [place] Other Cardiac Family History: maternal mother GI: Reports: Irritable Bowel Syndrome : Reports: Other (See Below) Other Family History: CKD, maternal mother Musculoskeletal: Reports: Arthritis, Back pain, Chronic Endocrine/Metabolic: Reports: Diabetes, Type I, Hypothyroidism Other Endocrine/Metabolic Family History: maternal mother Oncologic: Reports: Liver Other Oncologic Family History: paternal father - Caffeine Use Caffeine Use: Reports: Coffee Review of Systems - Review of Systems Review Of Systems: See Below Constitutional: Reports: No Symptoms Eyes: Reports: No Symptoms Ears: Reports: No Symptoms Nose: Reports: No Symptoms Mouth/Throat: Reports: No Symptoms Respiratory: Reports: No Symptoms Cardiovascular: Reports: No Symptoms GI/Abdominal: Reports: No Symptoms Genitourinary: Reports: No Symptoms Musculoskeletal: Reports: Other ( Pt turned her ankle inward. She developed acute swellin on the lateral aspect. e) Skin: Reports: No Symptoms ED EXAM, GENERAL - Physical Exam Exam: See Below Free Text/Narrative:: pt arrived with pain in the lateral aspect of her rt ankle. She was uncomfortable with bearing wt on the ankle. Exam Limited By: No Limitations General Appearance: Alert, Anxious, Mild Distress Extremities: Other ( The rt ankle is swollen and tender to palpate . there is good pulses present. ) Course - Vital Signs Last Recorded V/S: Last Vital Signs Temp 36.6 C 12/22/18 00:39 Pulse 66 12/22/18 00:39 Resp 18 12/22/18 00:39 BP 142/75 H 12/22/18 00:39 Pulse Ox 98 12/22/18 00:39 - Orders/Labs/Meds Orders: Active Orders 24 hr Category Date Time Status Ankle Min 3V Rt [CR] Stat Exams 12/22/18 00:19 Ordered Meds: Medications Discontinued Medications Generic Name Dose Route Start Last Admin Trade Name Freq PRN Reason Stop Dose Admin Hydrocodone Bitart/Acetaminophen 1 tab 12/22/18 00:35 [place] 325-5 Mg PO 12/22/18 00:36 ONETIME ONE Departure - Departure Time of Disposition: 00:38 Disposition: Home, Self-Care 01 Condition: Fair Clinical Impression: Ankle sprain - Discharge Information Referrals: Kelly Boone CNM [Primary Care Provider] - Forms: ED Department Discharge Care Plan Goals: crutches, cool pack elvate foot, motrin 600mg q6h as needed for pain , The ankle will become more bruised looking. stirup splint - My Orders Last 24 Hours: My Active Orders 12/22/18 00:19 Ankle Min 3V Rt [CR] Stat - Assessment/Plan Last 24 Hours: My Active Orders 12/22/18 00:19 Ankle Min 3V Rt [CR] Stat
--- NOTE | 2018-12-22 02:13 | CRLCR ---
Indication: Injury and pain Technique: Right ankle 3 views. Comparison: None Findings: Bones: No definite evidence of fracture. Small plantar heel spur. Joint spaces: No dislocation. Subtalar joint not well-defined. Talocalcaneal coalition not excluded. Small ankle effusion. Soft tissues: Prominent anterolateral soft tissue swelling. Impression: Prominent soft tissue swelling and small ankle effusion although without definite evidence of fracture. Dictated by Son Salmeron MD @ Dec 22 2018 2:08AM Signed by Dr. Son Salmeron @ Dec 22 2018 2:11AM
== END 2018-12-22 01:20 | disposition home or self-care (01) ==
LOC: JP.ED 00:01
DX: S93.401A Sprain of unspecified ligament of right ankle, initial encounter (principal); I12.9 Hypertensive chronic kidney disease with stage 1 through stage 4 chronic kidney disease, or unspecified chronic kidney disease; N18.9 Chronic kidney disease, unspecified; F41.9 Anxiety disorder, unspecified; E03.9 Hypothyroidism, unspecified; Z90.49 Acquired absence of other specified parts of digestive tract; F32.9 Major depressive disorder, single episode, unspecified; Z79.82 Long term (current) use of aspirin; Z88.8 Allergy status to other drugs, medicaments and biological substances; Z79.899 Other long term (current) drug therapy; Z90.710 Acquired absence of both cervix and uterus; Z88.1 Allergy status to other antibiotic agents; Z90.722 Acquired absence of ovaries, bilateral; X50.1XXA Overexertion from prolonged static or awkward postures, initial encounter
CPT/HCPCS: 73610; 99283; A9270

== ENCOUNTER 2019-04-08 11:16 | Emergency (ER) | payer MEDICAID ==
--- NOTE | 2019-04-08 12:18 | EDM.PDOC ---
ED HPI GENERAL MEDICAL PROBLEM - General Chief Complaint: Respiratory Problem Stated Complaint: SOB Time Seen by Provider: 04/08/19 12:14 Source of Information: Reports: Patient History Limitations: Reports: No Limitations - History of Present Illness INITIAL COMMENTS - FREE TEXT/NARRATIVE: pt was hospitalized mid feb at [facility]. She was ghaving a bronch and she developed a pneumothorax. She ended up with chest tubes and she was hospitalized. She did end up with a cat scan of the chest. She is now feeling sob. She was advised to be checked for increased pleural effusion. Onset: Gradual Duration: Day(s): Location: Reports: Chest Associated Symptoms: Reports: Cough, Shortness of Breath, Weakness, Other (pt does have a poor appetite ) Chest Pain Score (Numeric/FACES): 3 - Related Data Allergies Allergy/AdvReac Type Severity Reaction Status Date / Time fluoxetine [From Prozac] Allergy Cannot Verified 04/08/19 11:37 Remember hydrochlorothiazide Allergy Cannot Verified 04/08/19 11:37 [From Maxzide] Remember indapamide [From Lozol] Allergy Cannot Verified 04/08/19 11:37 Remember nortriptyline Allergy Cannot Verified 04/08/19 11:37 Remember triamterene [From Maxzide] Allergy Cannot Verified 04/08/19 11:37 Remember lisinopril [From Zestril] AdvReac Cough Verified 04/08/19 11:37 Home Meds: Home Meds DULoxetine [Cymbalta] 90 mg PO DAILY 10/15/13 [History] Levothyroxine Sodium 50 mcg PO DAILY 10/15/13 [History] Metoprolol Tartrate 50 mg PO BEDTIME 10/15/13 [History] atorvaSTATin Calcium [Atorvastatin Calcium] 40 mg PO BEDTIME 10/15/13 [History] traZODone HCl [Trazodone HCl] 150 mg PO BEDTIME 10/15/13 [History] Aspirin [Ecotrin EC] 81 mg PO DAILY 01/07/14 [History] Albuterol Sulfate [Proair Hfa] 2 inh PO Q4H PRN 05/03/14 [History] Gemfibrozil [Lopid] 600 mg PO BID 05/03/14 [History] Losartan [Cozaar] 50 mg PO DAILY 05/03/14 [History] Multivitamin [Multi-Vitamin Daily] 1 tab PO DAILY 05/03/14 [History] amLODIPine [Norvasc] 5 mg PO DAILY 09/03/16 [History] hydrOXYzine pamoate [Hydroxyzine Pamoate] 1 - 2 tab PO TID PRN 09/03/16 [History ] Calcium Acetate [PhosLo] 667 cap PO DAILY 04/08/19 [History] Past Medical History HEENT History: Reports: Impaired Vision Cardiovascular History: Reports: High Cholesterol, Hypertension Respiratory History: Reports: Asthma, COPD, Intubation, Previous Other Respiratory History: fluid on lungs. middle lobe right atelectasis. tracheromalacia. brochormalacia. bilateral pneumothoraces. right lobe growth Gastrointestinal History: Reports: Cholelithiasis, GERD Genitourinary History: Reports: Chronic Renal Insuffiency Other Genitourinary History: stage 4. 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: Musculoskeletal History: Reports: Arthritis, Back Pain, Chronic, Fracture Other Musculoskeletal History: DDD Psychiatric History: Reports: Anxiety, Depression Endocrine/Metabolic History: Reports: Hypothyroidism Hematologic History: Reports: Anemia Dermatologic History: Reports: Psoriasis - Infectious Disease History Infectious Disease History: Reports: Chicken Pox - Past Surgical History Head Surgeries/Procedures: Reports: None HEENT Surgical History: Reports: None Cardiovascular Surgical History: Reports: None, Other (See Below) Other Cardiovascular Surgeries/Procedures: ascending aorta enlargement Respiratory Surgical History: Reports: None, Other (See Below) Other Respiratory Surgeries/Procedures: chest tube. brochoscopy GI Surgical History: Reports: Cholecystectomy Female Surgical History: Reports: Hysterectomy, Salpingo-Oophorectomy Endocrine Surgical History: Reports: None Musculoskeletal Surgical History: Reports: None Social & Family History - Family History Cardiac: Reports: [place] Other Cardiac Family History: maternal mother GI: Reports: Irritable Bowel Syndrome : Reports: Other (See Below) Other Family History: CKD, maternal mother Musculoskeletal: Reports: Arthritis, Back pain, Chronic Endocrine/Metabolic: Reports: Diabetes, Type I, Hypothyroidism Other Endocrine/Metabolic Family History: maternal mother Oncologic: Reports: Liver Other Oncologic Family History: paternal father - Tobacco Use Smoking Status *Q: Former Smoker Used Tobacco, but Quit: Yes Month/Year Tobacco Last Used: 35 years ago - Caffeine Use Caffeine Use: Reports: Coffee - Recreational Drug Use Recreational Drug Use: No ED ROS GENERAL - Review of Systems Review Of Systems: See Below Constitutional: Reports: Malaise, Weakness, Decreased Appetite HEENT: Reports: No Symptoms Respiratory: Reports: Shortness of Breath, Cough Cardiovascular: Reports: No Symptoms Endocrine: Reports: No Symptoms GI/Abdominal: Reports: No Symptoms Musculoskeletal: Reports: No Symptoms Skin: Reports: No Symptoms Neurological: Reports: No Symptoms ED EXAM, GENERAL - Physical Exam Exam: See Below Free Text/Narrative:: pt has had a recent pneumo following a bronch. She is feeling alot more sob today. She does look quite pale at this time. Exam Limited By: No Limitations General Appearance: Alert, Anxious, Mild Distress Ears: Normal TMs Nose: Normal Inspection Throat/Mouth: Normal Inspection Head: Atraumatic Neck: Normal Inspection Respiratory/Chest: Other (pt has decreased breath sounds on the left. Her 02 sats are good. ) Cardiovascular: Regular Rate, Rhythm GI/Abdominal: Soft, Non-Tender (Female) Exam: Deferred Rectal (Female) Exam: Deferred Back Exam: Normal Inspection Extremities: Normal Inspection Neurological: Alert, Oriented, Normal Cognition Psychiatric: Anxious Course - Vital Signs Last Recorded V/S: Last Vital Signs Temp 36.8 C 04/08/19 11:34 Pulse 89 04/08/19 16:18 Resp 16 04/08/19 16:18 BP 132/85 04/08/19 16:18 Pulse Ox 95 04/08/19 16:18 - Orders/Labs/Meds Labs: Laboratory Tests 04/08/19 04/08/19 04/08/19 Range/Units 12:12 12:13 12:13 WBC 7.1 (4.5-11.0) K/uL RBC 3.52 (3.30-5.50) M/uL Hgb 9.1 L D (12.0-15.0) g/dL Hct 29.3 L (36.0-48.0) % MCV 83 (80-98) fL MCH 26 L (27-31) pg MCHC 31 L (32-36) % Plt Count 510 H (150-400) K/uL Neut % (Auto) 76 H (36-66) % Lymph % (Auto) 12 L (24-44) % Mcdonald % (Auto) 9 H (2-6) % Eos % (Auto) 2 (2-4) % Baso % (Auto) 1 (0-1) % Sodium 137 L (140-148) mmol/L Potassium 3.9 (3.6-5.2) mmol/L Chloride 103 (100-108) mmol/L Carbon Dioxide 22 (21-32) mmol/L Anion Gap 15.9 H (5.0-14.0) mmol/L BUN 15 D (7-18) mg/dL Creatinine 1.7 H (0.6-1.0) mg/dL Est Cr Clr Drug Dosing 24.01 mL/min Estimated GFR (MDRD) 30 L (>60) Glucose 96 (74-106) mg/dL Calcium 8.4 L D (8.5-10.1) mg/dL Total Bilirubin 0.4 (0.2-1.0) mg/dL AST 16 (15-37) U/L ALT 12 (12-78) U/L Alkaline Phosphatase 83 (46-116) U/L NT-Pro-B Natriuret Pep 2941 H (5-125) pg/mL Total Protein 6.7 (6.4-8.2) g/dL Albumin 2.2 L (3.4-5.0) g/dL Globulin 4.5 H (2.3-3.5) g/dL Albumin/Globulin Ratio 0.5 L (1.2-2.2) TSH, Ultra Sensitive (0.358-3.740) uIU/mL 04/08/19 Range/Units 12:58 WBC (4.5-11.0) K/uL RBC (3.30-5.50) M/uL Hgb (12.0-15.0) g/dL Hct (36.0-48.0) % MCV (80-98) fL MCH (27-31) pg MCHC (32-36) % Plt Count (150-400) K/uL Neut % (Auto) (36-66) % Lymph % (Auto) (24-44) % Mcdonald % (Auto) (2-6) % Eos % (Auto) (2-4) % Baso % (Auto) (0-1) % Sodium (140-148) mmol/L Potassium (3.6-5.2) mmol/L Chloride (100-108) mmol/L Carbon Dioxide (21-32) mmol/L Anion Gap (5.0-14.0) mmol/L BUN (7-18) mg/dL Creatinine (0.6-1.0) mg/dL Est Cr Clr Drug Dosing mL/min Estimated GFR (MDRD) (>60) Glucose (74-106) mg/dL Calcium (8.5-10.1) mg/dL Total Bilirubin (0.2-1.0) mg/dL AST (15-37) U/L ALT (12-78) U/L Alkaline Phosphatase (46-116) U/L NT-Pro-B Natriuret Pep (5-125) pg/mL Total Protein (6.4-8.2) g/dL Albumin (3.4-5.0) g/dL Globulin (2.3-3.5) g/dL Albumin/Globulin Ratio (1.2-2.2) TSH, Ultra Sensitive 1.838 (0.358-3.740) uIU/mL Meds: Medications Discontinued Medications Generic Name Dose Route Start Last Admin Trade Name Freq PRN Reason Stop Dose Admin Bacitracin 1 dose 04/08/19 16:09 04/08/19 16:14 Bacitracin Oint 1 Gm TOP 04/08/19 16:10 1 dose ONETIME ONE Administration Hydromorphone HCl 0.5 mg 04/08/19 15:31 04/08/19 15:38 Dilaudid IM 04/08/19 15:32 0.5 mg ONETIME ONE Administration - Re-Assessments/Exams Free Text/Narrative Re-Assessment/Exam: 04/10/19 21:13 pt had a chest xray which revealed a large pleural effusion on the left. Dr hernandez took off 700 cc of fluid and pt did feel better. Departure - Departure Time of Disposition: 16:56 Disposition: Home, Self-Care 01 Condition: Fair Clinical Impression: Status post thoracentesis, SOB (shortness of breath) - Discharge Information Instructions: Shortness of Breath, Adult, [id number], Thoracentesis, Care After Referrals: Kelly Boone CNM [Primary Care Provider] - Forms: ED Department Discharge Care Plan Goals: continue same meds, keep follow up appt with Dr Hernandez. and the follow up in [place] Sepsis Event Note - Evaluation Sepsis Screening Result: No Definite Risk - Focused Exam Date Exam was Performed: 04/10/19 Time Exam was Performed: 21:11
--- NOTE | 2019-04-08 13:01 | CRLCR ---
INDICATION: Shortness of breath. History of pleural effusion. TECHNIQUE: Two-views of the chest PA and lateral. COMPARISON: Prior chest CT of 04/01/2019 and prior chest x-ray of 09/03/2016. FINDINGS: Heart and mediastinum are unchanged. There is a moderate left-sided pleural effusion with associated atelectasis/infiltrate at the left lung base unchanged from recent CT. Stable granuloma right lung base. Surgical clips in the upper abdomen. Degenerative changes of the thoracic spine. IMPRESSION: 1. Moderate left pleural effusion with associated atelectasis/infiltrate left lung base. 2. Stable granuloma right lung base. Dictated by Ramon Denise MD @ Apr 08 2019 12:58PM Signed by Dr. Ramon Denise @ Apr 08 2019 1:01PM
[2019-04-08] MEDS ORDERED: HYDROmorphone 0.5 MG/0.5 ML Syringe IM ONE (15:31)
[2019-04-08] MEDS ORDERED: Bacitracin Oint 1 GM U/D Packet TOP ONE (16:09)
[2019-04-08 16:18] VITALS: BP 132/85; PULSE 89
--- NOTE | 2019-04-08 16:46 | CRLCR ---
Indication: Pleural effusion Technique: PA and lateral views of the chest Comparison: Study from earlier today. The current study is dated 163 Findings: The heart is normal in size. The left pleural effusion is decreased in size. No pneumothorax is identified. The right lung is clear. Impression: No pneumothorax s/p left thoracentesis Dictated by Amaris Mcgowan MD @ Apr 08 2019 4:41PM Signed by Dr. Amaris Mcgowan @ Apr 08 2019 4:44PM
--- NOTE | 2019-04-09 09:49 | OR ---
DATE OF PROCEDURE: 04/08/2019 SURGEON: Mikal Hernandez MD PROCEDURE: Thoracentesis, left chest. COMPLICATIONS: None. NURSE MIDWIFE: None. ANESTHESIA: Local. INDICATIONS: Pleural effusion, left side. RISKS: Risks, benefits, alternatives, and limitations including, but not limited to infection, bleeding, and pneumothorax were explained to the patient, who wished to proceed. PROCEDURE IN DETAIL: The patient was placed over a Timmons stand. The left chest was prepped and draped. A 13 megahertz ultrasound probe was used to identify the fluid collection. This was anesthetized with lidocaine. A single ld was created in the skin. The sheath was introduced as the needles were withdrawn. This was hooked up to a vacuum bottle system and 750 mL of bloody-type fluid was able to be aspirated. The sheath was then removed. Bacitracin and a [id number] stitch were applied. The patient tolerated the procedure well. Mikal Hernandez MD /[id number]
== END 2019-04-08 17:07 | disposition home or self-care (01) ==
LOC: JP.ED 11:16
DX: J90 Pleural effusion, not elsewhere classified (principal); I10 Essential (primary) hypertension; J44.9 Chronic obstructive pulmonary disease, unspecified; E03.9 Hypothyroidism, unspecified; F32.9 Major depressive disorder, single episode, unspecified; Z48.813 Encounter for surgical aftercare following surgery on the respiratory system; Z88.8 Allergy status to other drugs, medicaments and biological substances; Z79.82 Long term (current) use of aspirin; Z79.899 Other long term (current) drug therapy; Z79.890 Hormone replacement therapy; Z87.891 Personal history of nicotine dependence
CPT/HCPCS: 32555; 36415; 71046; 80053; 83880; 84443; 85025; 96372; 99285; J1170

== ENCOUNTER 2019-10-01 06:41 | Day surgery (SDC) | payer MEDICARE ==
[2019-10-01] MEDS ORDERED: fentaNYL 100 MCG/2 ML SDV ONE (07:29)
[2019-10-01] MEDS ORDERED: Propofol 200 MG/20 ML SDV ONE (07:29)
[2019-10-01] MEDS ORDERED: Midazolam 1 MG/ML 2 ML SDV ONE (07:29)
[2019-10-01] MEDS ORDERED: Sodium Chloride 0.9% 1,000 ML IV SCH (07:30)
[2019-10-01 09:38] VITALS: PULSE 66
[2019-10-01 10:19] VITALS: BP 129/75
--- NOTE | 2019-10-01 16:14 | OR ---
DATE OF PROCEDURE: 10/01/2019 SURGEON: Mikal Hernandez MD PROCEDURE: Colonoscopy. FINDINGS: 1. Marginal colon prep. 2. No other gross abnormalities. COMPLICATIONS: None. 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 ANESTHETIC: MAC. PREOPERATIVE DIAGNOSIS: Screening colonoscopy. POSTOPERATIVE DIAGNOSIS: Screening colonoscopy. RISKS: Risks, benefits, alternatives, and limitations including, but not limited to infection, bleeding, and perforation were explained to the patient, who wished to proceed. PROCEDURE IN DETAIL: The patient was placed in left lateral decubitus position. Digital rectal exam was performed without abnormality. Scope was introduced and advanced atraumatically to the ileocecal valve. Photo was taken. Scope was brought back through the ascending, transverse, descending colon, and retroflexed. Due to scope issues, the scope was exchanged for a different device. New scope was reintroduced and advanced again to approximately 50 cm. The prep itself was described as marginal with solid and liquid stool remaining and approximately 90% of the luminal surface could be seen. No abnormalities on retroflex. No diverticulosis. No old or new blood. The patient tolerated the procedure well. Mikal Hernandez MD /[id number]
== END 2019-10-01 10:15 | disposition home or self-care (01) ==
LOC: JP.SDS 06:41
PROVIDERS: ATTEND Surgery
DX: Z12.11 Encounter for screening for malignant neoplasm of colon (principal); J45.909 Unspecified asthma, uncomplicated; E78.5 Hyperlipidemia, unspecified; I12.9 Hypertensive chronic kidney disease with stage 1 through stage 4 chronic kidney disease, or unspecified chronic kidney disease; N18.4 Chronic kidney disease, stage 4 (severe); F32.9 Major depressive disorder, single episode, unspecified; F41.9 Anxiety disorder, unspecified; K21.9 Gastro-esophageal reflux disease without esophagitis; Z86.010 Personal history of colon polyps
CPT/HCPCS: G0105; J2250; J2704; J3010; J7030

== ENCOUNTER → 2020-01-20 | Day surgery (SDC) | payer MEDICARE, OTHER, SELFPAY ==
[~2020-01-20] MED LIST: Sodium Chloride 0.9% 10 ML Syringe FLUSH PRN
[2020-01-20 08:44] VITALS: BP 142/78; PULSE 68
--- NOTE | 2020-01-20 11:03 | OR ---
DATE OF PROCEDURE: 01/20/2020 SURGEON: Carol Harman MD POSTOPERATIVE CARE: Postoperative care will be provided mainly at the [address] [place] [address] [facility] in conjunction with [facility]. PREOPERATIVE DIAGNOSIS: Cataract, left eye. POSTOPERATIVE DIAGNOSIS: Cataract, left eye. PROCEDURE: Phacoemulsification with intraocular lens placement, left eye. ANESTHESIA: Topical and intracameral. ESTIMATED BLOOD LOSS: Minimal. COMPLICATIONS: None. PATHOLOGY SPECIMENS: None. SURGICAL FINDINGS: None. INDICATION FOR PROCEDURE: The patient is a 64-year-old female with history of a visually significant cataract in the left eye, which interfered with activities of daily living. This consisted of a nuclear sclerosis cataract. Following careful discussion of the risks, benefits and alternatives to cataract extraction with intraocular lens placement including blindness and , the patient elected to proceed, and informed, written consent was obtained prior to the procedure. DESCRIPTION OF THE PROCEDURE: The patient was previously identified, and a cara placed above the left eye. All sources, including the patient, indicated that the left eye was the correct eye. The patient was subsequently taken to the operating room where standard monitors were applied. The patient was then prepped and draped in the usual sterile fashion for ophthalmic surgery. Attention was first directed at the 12 o'clock position where a paracentesis port was fashioned. Shugar solution followed by Viscoat was instilled into the eye. Attention was then directed to the 8:30 position where a triplanar incision was made in a near-clear manner using a keratome. A continuous capsulorrhexis was then made using a combination of the cystotome and Utrata forceps. Hydrodissection was achieved using a balanced salt solution, and the lens rotated nicely. Phacoemulsification was then done using a modified [id number] technique without complication. Phaco time was 5.05 CDE. The remaining cortex was removed using the irrigation/aspiration handpiece. Provisc was then instilled into the eye. A Technis lens, model PCB00, at 22.5 diopters was then placed in the capsular bag using an [place] injector. The remaining viscoelastic was removed using the irrigation/aspiration forceps. All wounds were then checked and found to be watertight. The lid speculum and drapes were removed. Maxitrol ointment was placed in the patient's left eye, and the eye was shielded. The patient tolerated the procedure well. The patient was instructed to follow up tomorrow. All needle and sponge counts were correct at the end of the procedure. Carol Harman MD /[id number]
== END ==
LOC: JP.SDS 06:53
PROVIDERS: ATTEND Ophthalmology
DX: H25.12 Age-related nuclear cataract, left eye (principal); J45.909 Unspecified asthma, uncomplicated; I10 Essential (primary) hypertension
CPT/HCPCS: V2632

== ENCOUNTER 2020-02-03 06:57 | Day surgery (SDC) | payer MEDICARE ==
[2020-02-03 07:19] VITALS: PULSE 69
[2020-02-03] MEDS ORDERED: Sodium Chloride 0.9% 10 ML Syringe FLUSH PRN (07:30)
[2020-02-03 09:01] VITALS: BP 147/86
--- NOTE | 2020-02-03 10:54 | OR ---
DATE OF PROCEDURE: 02/03/2020 SURGEON: Carol Harman MD POSTOPERATIVE CARE: Postoperative care will be provided mainly at the [address] [place] [address] [facility] in conjunction with [facility]. PREOPERATIVE DIAGNOSIS: Cataract, right eye. POSTOPERATIVE DIAGNOSIS: Cataract, right eye. PROCEDURE: Phacoemulsification with intraocular lens placement, right eye. ANESTHESIA: Topical and intracameral. ESTIMATED BLOOD LOSS: Minimal. COMPLICATIONS: None. PATHOLOGY SPECIMENS: None. SURGICAL FINDINGS: None. INDICATION FOR PROCEDURE: The patient is a 64-year-old female with history of a visually significant cataract in the right eye, which interfered with activities of daily living. This consisted of a nuclear sclerosis cataract. Following careful discussion of the risks, benefits and alternatives to cataract extraction with intraocular lens placement including blindness and , the patient elected to proceed, and informed, written consent was obtained prior to the procedure. DESCRIPTION OF THE PROCEDURE: The patient was previously identified, and a cara placed above the right eye. All sources, including the patient, indicated that the right eye was the correct eye. The patient was subsequently taken to the operating room where standard monitors were applied. The patient was then prepped and draped in the usual sterile fashion for ophthalmic surgery. Attention was first directed at the 12 o'clock position where a paracentesis port was fashioned. Shugar solution followed by Viscoat was instilled into the eye. Attention was then directed to the 8:30 position where a triplanar incision was made in a near-clear manner using a keratome. A continuous capsulorrhexis was then made using a combination of the cystotome and Utrata forceps. Hydrodissection was achieved using a balanced salt solution, and the lens rotated nicely. Phacoemulsification was then done using a modified [id number] technique without complication. Phaco time was 4.26 CDE. The remaining cortex was removed using the irrigation/aspiration handpiece. Provisc was then instilled into the eye. A Technis lens, model PCB00, at 21.0 diopters was then placed in the capsular bag using an [place] injector. The remaining viscoelastic was removed using the irrigation/aspiration forceps. All wounds were then checked and found to be watertight. The lid speculum and drapes were removed. Maxitrol ointment was placed in the patient's right eye, and the eye was shielded. The patient tolerated the procedure well. The patient was instructed to follow up tomorrow. All needle and sponge counts were correct at the end of the procedure. Carol Harman MD /[id number]
== END 2020-02-03 09:10 | disposition home or self-care (01) ==
LOC: JP.SDS 06:57
PROVIDERS: ATTEND Ophthalmology
DX: H26.9 Unspecified cataract (principal); I10 Essential (primary) hypertension; E03.9 Hypothyroidism, unspecified; K21.9 Gastro-esophageal reflux disease without esophagitis
CPT/HCPCS: V2632

== ENCOUNTER 2021-09-09 15:14 | Emergency (ER) | payer MEDICARE ==
[2021-09-09 15:44] VITALS: BP 139/88; PULSE 102
[2021-09-09] MEDS ORDERED: Glycerin 2.1 GM Supp RECTAL ONE (16:05)
== END 2021-09-09 17:39 | disposition home or self-care (01) ==
LOC: JP.ED 15:14
DX: K59.00 Constipation, unspecified (principal); E78.00 Pure hypercholesterolemia, unspecified; J45.909 Unspecified asthma, uncomplicated; I10 Essential (primary) hypertension; E03.9 Hypothyroidism, unspecified; Z90.49 Acquired absence of other specified parts of digestive tract; Z90.710 Acquired absence of both cervix and uterus; Z79.899 Other long term (current) drug therapy; Z79.82 Long term (current) use of aspirin; Z88.8 Allergy status to other drugs, medicaments and biological substances; Z88.5 Allergy status to narcotic agent
CPT/HCPCS: 99281; 99283; A9270-GY

== ENCOUNTER 2022-06-15 12:11 | Emergency (ER) | payer MEDICARE, OTHER ==
[2022-06-15 12:27] VITALS: BP 147/89; PULSE 79
== END 2022-06-15 13:30 | disposition home or self-care (01) ==
LOC: JP.ED 12:11
DX: L23.9 Allergic contact dermatitis, unspecified cause (principal); E78.00 Pure hypercholesterolemia, unspecified; I12.9 Hypertensive chronic kidney disease with stage 1 through stage 4 chronic kidney disease, or unspecified chronic kidney disease; N18.4 Chronic kidney disease, stage 4 (severe); D63.1 Anemia in chronic kidney disease; J44.9 Chronic obstructive pulmonary disease, unspecified; E03.9 Hypothyroidism, unspecified; Z88.8 Allergy status to other drugs, medicaments and biological substances; Z79.899 Other long term (current) drug therapy; Z79.82 Long term (current) use of aspirin
CPT/HCPCS: 99282

== ENCOUNTER 2023-10-27 09:35 | Emergency (ER) | payer MEDICARE ==
[2023-10-27 09:53] VITALS: BP 130/96; PULSE 64
== END 2023-10-27 10:47 | disposition home or self-care (01) ==
LOC: JP.ED 09:35
DX: J20.9 Acute bronchitis, unspecified (principal); J44.9 Chronic obstructive pulmonary disease, unspecified; E78.00 Pure hypercholesterolemia, unspecified; I12.9 Hypertensive chronic kidney disease with stage 1 through stage 4 chronic kidney disease, or unspecified chronic kidney disease; N18.9 Chronic kidney disease, unspecified; E03.9 Hypothyroidism, unspecified; Z79.899 Other long term (current) drug therapy; Z88.8 Allergy status to other drugs, medicaments and biological substances
CPT/HCPCS: 99283; 99284

== ENCOUNTER 2024-02-15 15:49 | Emergency (ER) | payer MEDICARE ==
[2024-02-15 16:01] VITALS: BP 122/63; PULSE 66
[2024-02-19 01:10] LABS: B PERTUSSIS/PARAPERTUSS SOURCE Resp Swab; BORD PARAPERTUSSIS BY PCR Equivocal; BORDETELLA PERTUSSIS BY PCR Equivocal
== END 2024-02-15 17:32 | disposition home or self-care (01) ==
LOC: JP.ED 15:49
DX: J18.9 Pneumonia, unspecified organism (principal); I12.9 Hypertensive chronic kidney disease with stage 1 through stage 4 chronic kidney disease, or unspecified chronic kidney disease; N18.9 Chronic kidney disease, unspecified; E78.00 Pure hypercholesterolemia, unspecified; J44.9 Chronic obstructive pulmonary disease, unspecified; E03.9 Hypothyroidism, unspecified; Z90.49 Acquired absence of other specified parts of digestive tract; Z90.710 Acquired absence of both cervix and uterus; Z79.82 Long term (current) use of aspirin; Z79.899 Other long term (current) drug therapy; Z79.890 Hormone replacement therapy; Z79.52 Long term (current) use of systemic steroids; Z79.51 Long term (current) use of inhaled steroids; Z88.8 Allergy status to other drugs, medicaments and biological substances
CPT/HCPCS: 71046; 87798; 99283

== ENCOUNTER 2024-04-16 10:09 | Day surgery (SDC) | payer MEDICARE ==
[~2024-04-16 10:09] MED LIST changes: +Midazolam 1 MG/ML 2 ML SDV ONE; +Propofol 200 MG/20 ML SDV ONE; -Sodium Chloride 0.9% 10 ML Syringe FLUSH PRN; +fentaNYL 100 MCG/2 ML SDV ONE
[2024-04-16] MEDS: Lactated Ringers 1,000 ML IV SCH (11:06)
[2024-04-16] MEDS: ceFAZolin 2 GM in Premix Bag 1 BAG IV ONE (13:38)
[2024-04-16] MEDS: Lidocaine 1% with EPINEPHrine 1:100,000 50 ML MDV ONE (13:52)
[2024-04-16] MEDS: Bupivacaine 0.5% 50 ML MDV ONE (13:52)
[2024-04-16 14:29] VITALS: BP 144/71; PULSE 62
== END 2024-04-16 14:38 | disposition home or self-care (01) ==
LOC: JP.SDS 10:09
PROVIDERS: ATTEND Surgery
DX: L57.0 Actinic keratosis (principal); L98.9 Disorder of the skin and subcutaneous tissue, unspecified; I13.0 Hypertensive heart and chronic kidney disease with heart failure and stage 1 through stage 4 chronic kidney disease, or unspecified chronic kidney disease; I50.22 Chronic systolic (congestive) heart failure; N18.4 Chronic kidney disease, stage 4 (severe); K21.9 Gastro-esophageal reflux disease without esophagitis; E03.9 Hypothyroidism, unspecified; I42.9 Cardiomyopathy, unspecified; E78.2 Mixed hyperlipidemia; D63.1 Anemia in chronic kidney disease; J44.9 Chronic obstructive pulmonary disease, unspecified; G20.A1 Parkinson's disease without dyskinesia, without mention of fluctuations; Z79.899 Other long term (current) drug therapy; Z79.890 Hormone replacement therapy; Z88.8 Allergy status to other drugs, medicaments and biological substances
CPT/HCPCS: 00320; 11423; J0665; J0690; J2250; J2704; J3010; J7120; 88305